=== PATIENT | female | born 1995 | race Caucasian/White ===

== ENCOUNTER 2022-08-14 09:45 | Inpatient (IN) | payer MEDICAID ==
--- NOTE | 2022-08-16 10:45 | ANESTHESIA ---
Pre-Anesthesia VS, & Labs - Diagnosis repeat section - Procedure section - NPO >8 hours - Is Patient ?: Yes - Lab Results Lab results reviewed: Yes Fish Bones: 08/16/22 10:50 Home Medications and Allergies Allergies/Adverse Reactions: Allergies Allergy/AdvReac Type Severity Reaction Status Date / Time Penicillins Allergy Unknown Rash Verified 08/16/22 10:57 erythromycin base Allergy Rash Verified 08/16/22 10:58 latex Allergy Rash Verified 08/16/22 12:30 Anes History & Medical History - Anesthetic History Anesthesia Complications: reports: No previous complications Exam General: Alert, Oriented x3 Dental: WNL Mouth Opening: Greater than 4 Fingerbreadths Neck Mobility: Normal Mallampati classification: II Thyromental Distance: greater than 6 cm Respiratory: Lungs clear Cardiovascular: Regular rate Plan Anesthesia Type: Spinal, Transverse Abdominis Plane (TAP) Block Regional Block: Per Surgeon's request for Post Op pain control Consent for Procedure(s) Verified and Reviewed: Yes Code Status: Attempt Resuscitation ASA classification: 2-Mild systemic disease Is this case an emergency?: No
[2022-08-16] MEDS ORDERED: OXYTOCIN 10 UNIT/ML VIAL ONE ×2 (10:52→14:33)
[2022-08-16] MEDS ORDERED: OXYTOCIN/SODIUM CHLORIDE 500 ML IV PRN ×2 (11:10→15:14)
[2022-08-16] MEDS ORDERED: lidocaine 1% 20 ML MDV ID PRN (11:10)
[2022-08-16] MEDS ORDERED: fentaNYL 100 MCG/2 ML VIAL IVP PRN ×2 (11:10→15:03)
[2022-08-16] MEDS ORDERED: METHYLERGONOVINE 0.2 MG/ML VIAL IM PRN (11:10)
[2022-08-16] MEDS ORDERED: miSOPROStoL 200 MCG TABLET PR PRN (11:10)
[2022-08-16] MEDS ORDERED: NIFEdipine 10 MG CAPSULE PO PRN ×2 (11:10→15:14)
[2022-08-16] MEDS ORDERED: LABETALOL 20 MG/4 ML SYRINGE IVP PRN ×6 (11:10→15:14)
[2022-08-16] MEDS ORDERED: OXYTOCIN 10 UNIT/ML VIAL IM PRN (11:10)
[2022-08-16] MEDS ORDERED: TRANEXAMIC ACID IN NACL 1,000 MG/100 ML BAG IV PRN (11:10)
[2022-08-16] MEDS ORDERED: hydrALAZINE INJ 20 MG/ML VIAL IVP PRN ×4 (11:10→15:14)
[2022-08-16] MEDS ORDERED: SODIUM CHLORIDE FLUSH 0.9% 10 ML SYRINGE IVP PRN (11:10)
[2022-08-16] MEDS ORDERED: CARBOPROST TROMETHAMINE 250 MCG/ML AMP IM PRN (11:10)
[2022-08-16] MEDS ORDERED: miSOPROStoL 200 MCG TABLET BC PRN (11:10)
[2022-08-16] MEDS ORDERED: ceFAZolin 2 GM in SODIUM CHLORIDE 0.9% MINIBAG 100 ML IV ONE ×2 (11:16→12:20)
[2022-08-16] MEDS ORDERED: CITRIC ACID/SODIUM CITRATE 15 ML UDC PO ONE (11:17)
[2022-08-16 11:24] LABS: BASOPHILS # (AUTO) 0.1 10^3/uL (0.0-0.1); BASOPHILS % (AUTO) 0.4 %; EOSINOPHILS # (AUTO) 0.1 10^3/uL (0.0-0.7); EOSINOPHILS % (AUTO) 0.9 %; HCT - HEMATOCRIT 32.8 % (37.0-47.0); HGB - HEMOGLOBIN 10.4 g/dL (12.0-16.0); LYMPHOCYTES % (AUTO) 14.9 %; MEAN CORPUSCULAR HEMOGLOBIN 25.2 pg (27.0-31.0); MEAN CORPUSCULAR HGB CONC 31.7 g/dL (32.0-36.0); MEAN CORPUSCULAR VOLUME 79.4 fL (81.0-99.0); MEAN PLATELET VOLUME 11.3 fL (7.9-10.8); MONOCYTES # (AUTO) 0.8 10^3/uL (0.0-1.0); NEUTROPHILS # (AUTO) 10.5 10^3/uL (1.5-6.6); NEUTROPHILS % (AUTO) 77.2 %; PLT - PLATELET COUNT 416 10^3/uL (130-450); RED BLOOD COUNT 4.13 10^6/uL (4.20-5.40); RED CELL DISTRIBUTION WIDTH 14.7 % (12.0-15.0); WHITE BLOOD COUNT 13.5 x10^3/uL (4.8-10.8)
[2022-08-16] MEDS ORDERED: miSOPROStoL 200 MCG TABLET ONE (11:24)
[2022-08-16] MEDS: LACTATED RINGERS 1,000 ML IV SCH ×2 (11:26→15:56)
--- NOTE | 2022-08-16 12:33 | HISTORY & PHYSICAL EXAMINATION ---
Admit History - Visit Reason Visit Reason: Other (Scheduled RCD) - : 3 Parity: 1 Care: positive: [facility] Complications This : positive: None Smoking Status: Former smoker - Mother's Labs Mother's Blood Type: positive: O Mother's RH: positive: Positive GBS: positive: Group B Step Negative Rubella Status: positive: Immune - Other Maternal History Other Maternal History: Med: anxiety and depression Surg: CD 2020 Fam: noncontributory Social: , denies juan - HPI Current EDU 08/21/22 Gestation 39 Weeks and 2 Days 2 Vital Signs Temperature 98.6 F 08/16/22 11:30 Heart Rate 98 08/16/22 11:30 Respiratory Rate 17 08/16/22 11:30 Blood Pressure 119/65 08/16/22 11:30 Temperature 98.6 F 08/16/22 11:30 Heart Rate 98 08/16/22 11:30 Respiratory Rate 17 08/16/22 11:30 Blood Pressure 119/65 08/16/22 11:30 O2 Saturation If not protocol: Oxygen Flow, liters/minute Meds/Allgy - Allergies Allergies/Adverse Reactions: Allergies Allergy/AdvReac Type Severity Reaction Status Date / Time Penicillins Allergy Unknown Rash Verified 08/16/22 10:57 erythromycin base Allergy Rash Verified 08/16/22 10:58 latex Allergy Rash Verified 08/16/22 12:30 Physical - Abdominal Exam Vital Signs: Temp Pulse Resp BP Pulse Ox O2 Flow Rate 98.6 F 98 17 119/65 08/16/22 11:30 08/16/22 11:30 08/16/22 11:30 08/16/22 11:30 Contraction Intensity: positive: Mild Uterine Resting Tone: positive: Soft - Monitoring Heart Rate Baseline: 140 - Presentation Presentation: positive: Vertex (posterior) - Vaginal Exam Membranes: positive: Membranes intact Plan for Labor - Plan For Labor I expect patient to be DC'd or transferred within 96 hours.: Yes Plan for Labor: 26yo at 39.2w admitted for scheduled RCD - Admit - To OR for scheduled RCD
[2022-08-16] MEDS ORDERED: ceFAZolin 1 GM VIAL ONE (13:45)
[2022-08-16] MEDS ORDERED: ePHEDrine 50 MG/ML VIAL IVP ONE (13:45)
[2022-08-16] MEDS ORDERED: PHENYLEPHRINE 10 MG/ML VIAL ONE (13:47)
[2022-08-16] MEDS ORDERED: fentaNYL 100 MCG/2 ML VIAL ONE (14:13)
[2022-08-16] MEDS ORDERED: ROPIVACAINE 0.5% PF 20 ML VIAL ONE (14:26)
[2022-08-16] MEDS ORDERED: DEXAMETHASONE 4 MG/ML VIAL ONE (14:28)
[2022-08-16] MEDS ORDERED: LACTATED RINGERS 1,000 ML IV ONE (14:59)
[2022-08-16] MEDS ORDERED: METOCLOPRAMIDE 10 MG/2 ML VIAL IVP PRN (15:03)
[2022-08-16] MEDS ORDERED: NALOXONE 0.4 MG/ML VIAL IVP PRN ×2 (15:03→15:14)
[2022-08-16] MEDS ORDERED: MORPHINE 2 MG/ML CARPUJECT IVP PRN (15:03)
[2022-08-16] MEDS ORDERED: HYDROmorphone 0.5 MG/0.5 ML SYRINGE IVP PRN (15:03)
[2022-08-16] MEDS ORDERED: ATROPINE ABBOJECT 1 MG/10 ML SYRINGE IVP PRN (15:03)
[2022-08-16] MEDS ORDERED: ONDANSETRON 4 MG/2 ML VIAL IVP PRN ×2 (15:03→15:14)
[2022-08-16] MEDS ORDERED: ePHEDrine 50 MG/ML VIAL IVP PRN (15:03)
[2022-08-16] MEDS ORDERED: ROCURONIUM 50 MG/5 ML VIAL ONE (15:05)
[2022-08-16] MEDS ORDERED: KETOROLAC 30 MG/ML VIAL ONE (15:05)
[2022-08-16] MEDS ORDERED: LIDOCAINE-PF 2% 10 ML AMP SUBQ ONE (15:05)
[2022-08-16] MEDS ORDERED: PROPOFOL 200 MG/20 ML VIAL IVP ONE (15:05)
[2022-08-16] MEDS ORDERED: HYDROCORTISONE 1% CREAM 28 GM TUBE TOP PRN (15:14)
[2022-08-16] MEDS ORDERED: CALCIUM CARBONATE CHEW 500 MG TABLET PO PRN (15:14)
[2022-08-16] MEDS ORDERED: WITCH HAZEL/GLYCERIN 1 PAD TOP PRN (15:14)
[2022-08-16] MEDS ORDERED: SIMETHICONE CHEW 80 MG TABLET PO PRN (15:14)
--- NOTE | 2022-08-16 15:31 | ANESTHESIA POST OP EVALUATION ---
Anesthesia Post Eval - Post Anesthesia Eval Vitals: Last Vital Signs Temp 36.7 C 08/16/22 15:25 Pulse 85 08/16/22 15:25 Resp 17 08/16/22 15:25 BP 105/88 H 08/16/22 15:25 Pulse Ox 100 08/16/22 15:25 O2 Flow Rate CV Function Including HR & BP: Stable Pain Control: Satisfactory Nausea & Vomiting: Negative Mental Status: Baseline Respiratory Status: Airway Patent Hydration Status: Satisfactory Anesthesia Complications: None
[2022-08-16] MEDS: oxyCODONE 5 MG TABLET PO PRN ×2 (15:58→20:02)
[2022-08-16] MEDS ORDERED: LACTATED RINGERS 1,000 ML IV SCH (16:00)
[2022-08-16] MEDS: DOCUSATE SODIUM 100 MG CAPSULE PO SCH (20:34)
[2022-08-16] MEDS: KETOROLAC 30 MG/ML VIAL IVP SCH (20:34)
--- NOTE | 2022-08-16 21:37 | OPERATIVE REPORT ---
Operative Report - General Admit Date: 08/16/22 Procedure Date: 08/16/22 Planned Procedure: Repeat section Pre-Op Diagnosis: 26yo with IUP 39.2w, Prior CD x1, Desires RCD Procedure Performed: Repeat section Post Op Diagnosis: 26yo with IUP 39.2w, Prior CD x1, Desires RCD - Procedure Note Primary Surgeon: Lois Roger DO Secondary Surgeon: Mary Carmen Justin CNM Anesthesia Provider: Ashleigh Floyd CRNA Pathology: None Estimated Blood Loss (mL): 600 Indications: 26yo with IUP 39.2w, Prior CD x1, Desires RCD Findings: Viable Normal appearing uterus, tubes, ovaries Complications: None - Other Other Information/Narrative: Under spinal anaesthetic with a Young catheter inserted, the patient was prepped and draped in the usual sterile fashion in the supine position with a leftward tilt. A Pfannensteil incision was made through the patients previous incision. The incision was carried down to the fascia with sharp dissection. The fascia was incised transversely and dissected off the rectus muscle using blunt and sharp dissection. Electrocautery was used for hemostasis. The peritoneum was opened taking care not to injure the bladder. The vesicouterine peritoneum was dissected off the lower uterine segment. The lower segment was assessed and a low transverse incision was made. The uterine incision was extended bluntly. The fetus was presenting as a vertex. The head was delivered with vacuum assistance to bring to incision. Vacuum applied to flexion point and with fundal pressure guided gently to incision and then delivered. Rest of the body followed easily. After one minute of delayed cord clamping, the cord was clamped twice and cut and the baby transferred to the warmer, awaiting the pediatric staff. The placenta was then delivered with assistance. The uterus was explored and was empty of all tissue. The uterus was exteriorized for better visualization. The uterine incision was then closed in one layer with 0-Monocryl. Tubes and ovaries were examined and appeared normal. The fascia was closed with 0-Vicryl in a running unlocked fashion. Subcutaneous layer reapproximated with 2-0 chromic. The skin was then reapproximated with 4-0 monocryl. At the end of the procedure all sponges, instruments, and sharps were counted and correct. Estimated blood loss was 600cc. The patient and baby were taken to the recovery in stable condition.
[2022-08-16] MEDS: ACETAMINOPHEN 500 MG TABLET PO SCH (22:42)
[2022-08-16] MEDS: IBUPROFEN 800 MG TABLET PO SCH (22:44)
[2022-08-16] MEDS: SODIUM CHLORIDE FLUSH 0.9% 10 ML SYRINGE IVP SCH (22:44)
[2022-08-17] MEDS: oxyCODONE 5 MG TABLET PO PRN ×5 (00:08→22:07)
[2022-08-17] MEDS: KETOROLAC 30 MG/ML VIAL IVP SCH ×2 (02:30→08:20)
[2022-08-17 05:59] LABS: HGB - HEMOGLOBIN 9.1 g/dL (12.0-16.0); MEAN CORPUSCULAR HEMOGLOBIN 24.9 pg (27.0-31.0); MEAN CORPUSCULAR HGB CONC 31.4 g/dL (32.0-36.0); MEAN CORPUSCULAR VOLUME 79.2 fL (81.0-99.0); MEAN PLATELET VOLUME 10.5 fL (7.9-10.8); RED BLOOD COUNT 3.66 10^6/uL (4.20-5.40); RED CELL DISTRIBUTION WIDTH 14.5 % (12.0-15.0); WHITE BLOOD COUNT 18.6 x10^3/uL (4.8-10.8)
[2022-08-17] MEDS: ACETAMINOPHEN 500 MG TABLET PO SCH ×3 (06:41→22:06)
[2022-08-17] MEDS: DOCUSATE SODIUM 100 MG CAPSULE PO SCH ×2 (08:19→22:07)
[2022-08-17] MEDS: SODIUM CHLORIDE FLUSH 0.9% 10 ML SYRINGE IVP SCH (08:20)
[2022-08-17] MEDS: IBUPROFEN 800 MG TABLET PO SCH ×2 (14:07→20:40)
--- NOTE | 2022-08-17 19:02 | PROVIDER PROGRESS NOTE ---
Subjective - Prog Note Date Prog Note Date: 08/17/22 Prog Note Time: 10:00 - Subjective Pt reports feeling: Improved Subjective: Comfortable. Appropriate lochia. Ambulating. Voiding. Pos BM. Tolerating regular diet. well. Mood is good. Objective - Vital Signs/Intake & Output Reviewed Vital Signs: Yes Vital Signs: Vital Signs x48h Temp Pulse Resp BP Pulse Ox 08/17/22 17:38 98.4 F 74 16 123/69 100 08/17/22 14:15 97.7 F 84 16 122/68 100 Intake & Output: Intake & Output 08/14/22 08/15/22 08/16/22 08/17/22 23:59 23:59 23:59 23:59 Intake Total 1989.583 485.417 Output Total 550 301 Balance 1439.583 184.417 - Objective General Appearance: positive: No acute distress Eyes Bilateral: positive: EOMI Respiratory: positive: No respiratory distress Abdomen: positive: Other (Prevena dressing in place. Fundus firm. Appropriately tender.) Extremities: positive: Non-tender Neurologic/Psychiatric: positive: Oriented x3 - Lab Results Fish Bones: 08/17/22 05:54 Other Labs: Lab Results x24hrs 08/17/22 Range/Units 05:54 WBC 18.6 H (4.8-10.8) x10^3/uL RBC 3.66 L (4.20-5.40) 10^6/uL Hgb 9.1 L (12.0-16.0) g/dL Hct 29.0 L (37.0-47.0) % MCV 79.2 L (81.0-99.0) fL MCH 24.9 L (27.0-31.0) pg MCHC 31.4 L (32.0-36.0) g/dL RDW 14.5 (12.0-15.0) % Plt Count 372 (130-450) 10^3/uL MPV 10.5 (7.9-10.8) fL Assessment/Plan - Problem List (1) care following delivery Impression: 26yo s/p scheduled RCD 08/16/22, POD#1 doing well - Continue postoperative/ care - Anticipate discharge tomorrow
[2022-08-18] MEDS: oxyCODONE 5 MG TABLET PO PRN ×4 (02:42→21:52)
--- NOTE | 2022-08-18 03:07 | Discharge Plan ---
Discharge Plan Problem Reviewed?: Yes Disposition: Home, Self Care Condition: Good Diet: Regular Activity Restrictions: Activity as Tolerated Shower Restrictions: No Driving Restrictions: Yes (No driving while taking narcotics) Weight Bearing: Full Weight Instruction Topics: No Smoking: If you smoke, Please STOP! Call for help. Follow-up with: Mary Carmen Justin CNM, [facility]NAN[facility] [Provider Admit Priv/Credential] -
--- NOTE | 2022-08-18 03:09 | DISCHARGE SUMMARY ---
Discharge Summary Admit Date: 08/16/22 Discharge Date: 08/18/22 Discharging Provider: Lois Roger Code Status: Attempt Resuscitation Condition at Discharge: Good Discharge Disposition: Home, Self Care Discharge Facility Name: [facility] - DIAGNOSES Admission Diagnoses: 26yo at 37w Prior CDx1, desires repeat - HPI History of Present Illness: 26to at 39.2w admitted for scheduled RCD. See operative report for details. - HOSPITAL COURSE Hospital Course: 26to at 39.2w admitted for scheduled RCD. See operative report for details. She is recovering appropriately. Appropriate lochia. Ambulating. Voiding. Tolerating regular diet. well. Mood is good. She is eager to go home to her family today. Anemia due to section. She should continue to take vitamins and oral iron if tolerated. Postoperative and care reviewed. - ALLERGIES Allergies/Adverse Reactions: Allergies Allergy/AdvReac Type Severity Reaction Status Date / Time Penicillins Allergy Unknown Rash Verified 08/16/22 10:57 erythromycin base Allergy Rash Verified 08/16/22 10:58 latex Allergy Rash Verified 08/16/22 12:30 - PHYSICAL EXAM AT DISCHARGE General Appearance: positive: No acute distress Eyes Bilateral: positive: EOMI Respiratory: positive: No respiratory distress Skin: positive: Color nml, Cyanosis Neurologic/Psychiatric: positive: Oriented x3 - LABS Result Diagrams: 08/17/22 05:54 - QUALITY (Female Hip Fx Only) Was patient sent home on osteoporosis medication?: No - TIME SPENT Time Spent in Discharge (Minutes): 25
[2022-08-18] MEDS: ACETAMINOPHEN 500 MG TABLET PO SCH ×2 (08:50→17:42)
[2022-08-18] MEDS: DOCUSATE SODIUM 100 MG CAPSULE PO SCH ×2 (08:51→21:54)
[2022-08-18] MEDS: IBUPROFEN 800 MG TABLET PO SCH ×3 (08:52→21:53)
[2022-08-19] MEDS: ACETAMINOPHEN 500 MG TABLET PO SCH ×2 (02:00→10:26)
[2022-08-19] MEDS: IBUPROFEN 800 MG TABLET PO SCH ×2 (04:29→10:26)
[2022-08-19 07:51] VITALS: BP 120/72
[2022-08-19] MEDS: oxyCODONE 5 MG TABLET PO PRN (08:17)
--- NOTE | 2022-08-19 08:29 | PROVIDER PROGRESS NOTE ---
Subjective - Subjective Pt reports feeling: Improved (patient was discharged yesterday. stayed overnight as baby was not able to be discharged going home today. no other changes to the discharge summary.) Objective - Vital Signs/Intake & Output Vital Signs: Vital Signs x48h Temp Pulse Resp BP Pulse Ox 08/19/22 07:49 98.1 F 90 22 120/72 100 08/19/22 05:10 90 17 126/79 99 08/19/22 01:00 98.4 F 91 17 116/76 99 Intake & Output: Intake & Output 08/16/22 08/17/22 08/18/22 08/19/22 23:59 23:59 23:59 23:59 Intake Total 1989.583 485.417 Output Total 550 302 2 Balance 1439.583 183.417 -2 - Lab Results Fish Bones: 08/17/22 05:54
[2022-08-19] MEDS: DOCUSATE SODIUM 100 MG CAPSULE PO SCH (10:26)
--- NOTE | 2022-08-19 12:24 | Labor Flowsheet ---
Labor Flowsheet Datetime Report Generated by CPN: 08/19/2022 12:24 Datetime: 08/16/2022 14:58 VAGINAL EXAM Membranes Ruptured Date/Time: 08/16/2022 14:00 Membranes Rupture Method: Artificial Amniotic Fluid Color: Clear Amniotic Fluid Amount: Moderate
== END 2022-08-19 12:20 | disposition home or self-care (01) | DRG 788 ==
LOC: FBP 08-16 10:24
PROVIDERS: ADMIT Obstetrics & Gynecology; ATTEND Obstetrics & Gynecology
PROC: 10D00Z1 Extraction of Products of Conception, Low, Open Approach (ICD-10-PCS; principal; 2022-08-16 12:30)
DX: O34.211 Maternal care for low transverse scar from previous cesarean delivery (principal); Z3A.39 39 weeks gestation of pregnancy; O90.81 Anemia of the puerperium; D64.9 Anemia, unspecified; Z87.891 Personal history of nicotine dependence
CPT/HCPCS: 36415; 85025; 85027; 86850; 86900; 86901; A9270; J2795; J7120